=== PATIENT | female | born 1955 | race Asian ===

== ENCOUNTER 2021-04-06 08:11 | Day surgery (SDC) | payer OTHER ==
[~2021-04-06] VITALS: Ht 160 cm; Wt 73.9 kg
[2021-04-06] MEDS ORDERED: fentaNYL citrate 0.05 MG/ML VIAL ONE (12:29)
[2021-04-06] MEDS: fentaNYL citrate 0.05 MG/ML VIAL IVP ONE (12:32)
[2021-04-06] MEDS: LIDOCAINE 2% 100 MG/5 ML UJET TP ONE (12:33)
== END 2021-04-06 13:48 | disposition home or self-care (01) ==
LOC: MMU 08:11 → MDS 08:11
PROVIDERS: ATTEND Internal Medicine Gastroenterology
DX: Z12.11 Encounter for screening for malignant neoplasm of colon (principal); D12.3 Benign neoplasm of transverse colon
CPT/HCPCS: 45385; J3010